=== PATIENT | male | born 1965 | race Caucasian/White ===

== ENCOUNTER 2019-06-02 11:15 | Emergency (ER) | payer OTHER ==
[~2019-06-02] VITALS: Ht 182.9 cm; Wt 106.6 kg
[~2019-06-02 11:15] MED LIST: OMEPRAZOLE40 MG PO; ONDANSETRON HCL4 M2 PO; PERCOCET 7.5-31 EACH PO; PHENERGAN 25 MG25 M1 PO; [UNRECOGNIZED DRUG - REMARK]
[2019-06-02] MEDS ORDERED: IBU800 MG PO (12:17)
[2019-06-02] MEDS ORDERED: CYCLOBENZAPRINE5 MG PO (12:17)
[2019-06-02 12:29] VITALS: BP 138/76
== END 2019-06-02 12:30 | disposition home or self-care (01) ==
LOC: M.ERS 11:15
DX: S20.212A Contusion of left front wall of thorax, initial encounter (principal); M62.838 Other muscle spasm; K21.9 Gastro-esophageal reflux disease without esophagitis; Z90.49 Acquired absence of other specified parts of digestive tract; W16.212A Fall in (into) filled bathtub causing other injury, initial encounter; Y93.89 Activity, other specified; Y92.89 Other specified places as the place of occurrence of the external cause; Y99.8 Other external cause status